=== PATIENT | male | born 1960 | race Two or more races ===

== ENCOUNTER → 2016-10-21 | Outpatient (CLI) | payer MEDICAID ==
[~2016-10-21] MED LIST: BUPR100T8 PO; HYDR-3144 PO; IBUP-1222 PO; LISI1TAB7 PO; NORT25CA PO; OMEP20TA62 PO
[2016-10-21 15:37] LABS: BLOOD UREA NITROGEN 18 mg/dL (7-18)
[2016-10-21 15:41] LABS: ASPARTATE AMINO TRANSFERASE 21 U/L (15-37)
== END | disposition home or self-care (01) ==
LOC: STAR 14:24
PROVIDERS: ATTEND Orthopaedic Surgery
DX: M75.121 Complete rotator cuff tear or rupture of right shoulder, not specified as traumatic (principal); M75.41 Impingement syndrome of right shoulder; M75.51 Bursitis of right shoulder
CPT/HCPCS: 36415; 80053

== ENCOUNTER 2016-10-27 10:09 | Day surgery (SDC) | payer MEDICAID ==
[2016-10-21 14:47] VITALS: BP 132/83
[~2016-10-27] VITALS: Ht 175.3 cm; Wt 84.5 kg
[2016-10-27] MEDS ORDERED: OXYC-229 PO (10:45)
[2016-10-27] MEDS ORDERED: LACTATED RINGERS 1,000 ML IV SCH (10:46)
[2016-10-27] MEDS ORDERED: LIDOCAINE 1%, 2ML ONE (10:48)
[2016-10-27] MEDS ORDERED: LIDOCAINE 1%, 2ML SQ PRN (11:00)
[2016-10-27] MEDS ORDERED: KETAMINE 10 MG/ML, 20ML ONE (11:20)
[2016-10-27] MEDS ORDERED: MIDAZOLAM 1 MG/ML, 2ML ONE (11:21)
[2016-10-27] MEDS ORDERED: FENTANYL PF 100 MCG/2ML ONE ×2 (11:21→14:23)
[2016-10-27] MEDS ORDERED: BUPIVACAINE/PF 0.25% ONE (12:24)
[2016-10-27] MEDS ORDERED: BUPIVACAINE/PF 0.5% ONE (12:24)
[2016-10-27] MEDS ORDERED: LIDOCAINE/PF 1%-EPI 1:200K, 30ML ONE (12:28)
[2016-10-27] MEDS ORDERED: BUPIVACAINE/PF-EPI 0.25% 1:200K ONE (12:28)
[2016-10-27] MEDS ORDERED: ROCURONIUM 10 MG/ML ONE (12:40)
[2016-10-27] MEDS ORDERED: PROPOFOL 10 MG/ML, 20ML ONE (12:40)
[2016-10-27] MEDS ORDERED: ONDANSETRON 2MG/ML, 2ML ONE (12:40)
[2016-10-27] MEDS ORDERED: PHENYLEPHRINE 10 MG/ML ONE (12:40)
[2016-10-27] MEDS ORDERED: CEFAZOLIN 1,000 MG ONE (12:40)
[2016-10-27] MEDS ORDERED: DEXAMETHASONE 4 MG/ML, 1ML ONE (12:40)
[2016-10-27] MEDS ORDERED: OXYcodone 5 MG/5 ML ORAL.SOL UDC PO PRN (14:30)
[2016-10-27] MEDS ORDERED: ONDANSETRON 2MG/ML, 2ML IVPush PRN (14:30)
[2016-10-27] MEDS ORDERED: PROMETHAZINE 25 MG/ML, 1ML IV PRN (14:30)
[2016-10-27] MEDS ORDERED: hydrALAzine 20 MG/ML, 1ML IV PRN (14:30)
[2016-10-27] MEDS ORDERED: HYDROmorphone 1 MG/ML, 1ML IV PRN (14:30)
[2016-10-27] MEDS ORDERED: MIDAZOLAM 1 MG/ML, 2ML IV PRN (14:30)
[2016-10-27] MEDS ORDERED: LABETALOL 5MG/ML, 20ML IV PRN (14:30)
[2016-10-27] MEDS ORDERED: MEPERIDINE/PF 25MG/0.5ML IVPush PRN (14:30)
[2016-10-27] MEDS ORDERED: FENTANYL PF 100 MCG/2ML IV PRN (14:30)
== END 2016-10-27 16:50 | disposition home or self-care (01) ==
LOC: OUT 10:09
PROVIDERS: ATTEND Orthopaedic Surgery
DX: S46.011A Strain of muscle(s) and tendon(s) of the rotator cuff of right shoulder, initial encounter (principal); M19.011 Primary osteoarthritis, right shoulder; M25.811 Other specified joint disorders, right shoulder; M65.811 Other synovitis and tenosynovitis, right shoulder; S43.491A Other sprain of right shoulder joint, initial encounter; M75.51 Bursitis of right shoulder; I10 Essential (primary) hypertension; X50.9XXA Other and unspecified overexertion or strenuous movements or postures, initial encounter; Y93.89 Activity, other specified; Y92.9 Unspecified place or not applicable; Y99.9 Unspecified external cause status
CPT/HCPCS: 29823; 29824; 29826; 29827; J0690; J1100; J2250; J2370; J2405; J2704; J3010; J3490; J7120

== ENCOUNTER 2017-04-18 17:34 | Emergency (ER) | payer SELFPAY ==
[~2017-04-18] VITALS: Ht 175.3 cm; Wt 89.6 kg
[~2017-04-18 17:34] MED LIST changes: -HYDR-3144 PO; +HYDR-3245 PO; +OXYC-307 PO
[2017-04-18 17:35] VITALS: BP 136/86
== END 2017-04-18 18:16 | disposition home or self-care (01) ==
LOC: ED 17:50
DX: K64.4 Residual hemorrhoidal skin tags (principal); I10 Essential (primary) hypertension; G89.29 Other chronic pain
CPT/HCPCS: 99283